=== PATIENT | female | born 1990 | race American Indian/Alaskan Native ===

== ENCOUNTER 2019-02-15 08:44 | Emergency (ER) | payer MEDICAID ==
[2019-02-15 08:48] VITALS: BP 120/64
[2019-02-15 09:19] LABS: Hematocrit 37.6 % (30.3-42.9); Hemoglobin 12.2 gm/dl (10.1-14.3); Mean Corpuscular HGB Conc 33 % (30-34); Mean Corpuscular Volume 83 fl (79-97); Platelet Count 139 K/mm3 (140-440); Red Blood Count 4.54 M/mm3 (3.65-5.03); Red Cell Distribution Width 16.2 % (13.2-15.2)
[2019-02-15 10:37] LABS: Bilirubin,Urine NEG (Negative); Blood,Urine LG (Negative); Color,Urine Yellow (Yellow); Mucus,Urine 3+ /HPF; Protein,Urine <15 mg/dL mg/dL (Negative)
--- NOTE | 2019-02-15 10:44 | Emergency Department Report ---
ED HPI - General Chief complaint: Vaginal Bleeding Stated complaint: MISCARRIAGE Time Seen by Provider: 02/15/19 09:34 Source: patient Mode of arrival: Ambulatory Limitations: No Limitations - History of Present Illness Initial comments: This is a 28-year-old female nontoxic, well nourished in appearance, no acute signs of distress presents to the ED with c/o of vaginal bleeding and pelvic pain/cramping x x4 days. Patient stated seen some clump of blood yesterday. Patient denies any abdominal pain. Patient denies any vaginal discharge or foul odor. Patient denies any nausea, vomiting, chest pain, shortness of breathe, fever, chills, headache, stiff neck, numbness, tingling. Patient denies any urinary symptoms. Patient denies any allergies or PMH. LMP 12/29/18. MD Complaint: vaginal bleeding, other (pelvic cramping) -: days(s) (4) Location: pelvis Radiation: none Severity: mild Severity scale (0 -10): 3 Quality: cramping Consistency: intermittent Improves with: none Worsens with: none Associated symptoms: vaginal bleeding. denies: nausea/vomiting, vaginal discharge, abdominal pain, dysuria, headache, vision changes, malaise, dysparuenia, rash, seizure, shortness of breath, syncope, weakness Vaginal bleeding: light :: Yes Pre-radha care: none - Related Data Previous Rx's Medication Instructions Recorded Last Taken Type Nitrofurantoin Monohyd/M-Cryst 100 mg PO Q12H #14 capsule 02/15/19 Unknown Rx [Macrobid 100 mg Capsule] 21/Iron Fu/Folic Acid 1 each PO DAILY #30 tablet 02/15/19 Unknown Rx [ Complete Caplet] Allergies Allergy/AdvReac Type Severity Reaction Status Date / Time No Known Allergies Allergy Unverified 02/15/19 08:45 ED Review of Systems ROS: Stated complaint: MISCARRIAGE Other details as noted in HPI Constitutional: denies: chills, fever Eyes: denies: eye pain, eye discharge, vision change ENT: denies: ear pain, throat pain Respiratory: denies: cough, shortness of breath, wheezing Cardiovascular: denies: chest pain, palpitations Endocrine: no symptoms reported Gastrointestinal: denies: abdominal pain, nausea, diarrhea Genitourinary: abnormal menses. denies: urgency, dysuria, discharge Musculoskeletal: denies: back pain, joint swelling, arthralgia Skin: denies: rash, lesions Neurological: denies: headache, weakness, paresthesias Psychiatric: denies: anxiety, depression Hematological/Lymphatic: denies: easy bleeding, easy bruising ED Past Medical Hx - Past Medical History Previous Medical History?: No - Surgical History Past Surgical History?: No - Social History Smoking Status: Never Smoker Substance Use Type: None - Medications Home Medications: Home Medications Medication Instructions Recorded Confirmed Last Taken Type Nitrofurantoin Monohyd/M-Cryst 100 mg PO Q12H #14 capsule 02/15/19 Unknown Rx [Macrobid 100 mg Capsule] 21/Iron Fu/Folic Acid 1 each PO DAILY #30 tablet 02/15/19 Unknown Rx [ Complete Caplet] ED Physical Exam - General Limitations: No Limitations General appearance: alert, in no apparent distress - Head Head exam: Present: atraumatic, normocephalic - Eye Eye exam: Present: normal appearance - ENT ENT exam: Present: mucous membranes moist - Neck Neck exam: Present: normal inspection, full ROM. Absent: tenderness, meningismus, lymphadenopathy - Respiratory Respiratory exam: Present: normal lung sounds bilaterally. Absent: respiratory distress, wheezes, rales, rhonchi, stridor, chest wall tenderness, accessory muscle use, decreased breath sounds, prolonged expiratory - Cardiovascular Cardiovascular Exam: Present: regular rate, normal rhythm, normal heart sounds. Absent: bradycardia, tachycardia, irregular rhythm, systolic murmur, diastolic murmur, rubs, gallop - GI/Abdominal GI/Abdominal exam: Present: soft, normal bowel sounds. Absent: distended, tenderness, guarding, rebound, rigid, diminished bowel sounds - Extremities Exam Extremities exam: Present: normal inspection, full ROM - Back Exam Back exam: Present: normal inspection, full ROM. Absent: tenderness, CVA tenderness (R), CVA tenderness (L), muscle spasm, paraspinal tenderness, vertebral tenderness, rash noted - Neurological Exam Neurological exam: Present: alert, oriented X3 - Psychiatric Psychiatric exam: Present: normal affect, normal mood - Skin Skin exam: Present: warm, dry, intact, normal color. Absent: rash ED Course Vital Signs 02/15/19 08:45 Temperature 98.2 F Pulse Rate 89 Respiratory 18 Rate Blood Pressure 120/64 O2 Sat by Pulse 96 Oximetry - Reevaluation(s) Reevaluation #1: 02/15/19 11:05 Patient is speaking in full sentences with no signs of distress noted. ED Medical Decision Making - Lab Data Result diagrams: 02/15/19 08:57 - Medical Decision Making This is a 28-year-old female presents with threatened miscarriage and UTI. Patient is stable and was examined by me. Normal abdominal exam. US OB obtained and dictated by the radiologist Greg Soto from [facility] with normal single IUP with 92 heart beat and 6 weeks 3 days. Ua obtained. Quantative serum test obtained. Patient notified of the US report with no questions noted by the patient. Patient was instructed f/u with [facility] in 2 days to follow up with a [facility] or to emergency room for a reevaluation of serum quantative test with possible ultrasound. RH factor positive. Labs within normal limits. Patient was given strict precautions and education on ectopic . At time of discharge, the patient does not seem toxic or ill in appearance. No acute signs of distress noted. Patient agrees to discharge treatment plan of care. No further questions noted by the patient. Critical care attestation.: If time is entered above; I have spent that time in minutes in the direct care of this critically ill patient, excluding procedure time. ED Disposition Clinical Impression: Threatened miscarriage UTI (urinary tract infection) Qualifiers: Urinary tract infection type: acute cystitis Hematuria presence: with hematuria Qualified Code(s): N30.01 - Acute cystitis with hematuria Disposition: - TO HOME OR SELFCARE Is pt being admited?: No Does the pt Need Aspirin: No Condition: Stable Instructions: Threatened Miscarriage (ED), Urinary Tract Infection in Women (ED) Additional Instructions: Follow-up with a OBGYN doctor in 2 days for a repeat HCG testing or if symptoms worsen and continue return to emergency room as soon as possible. Prescriptions: Nitrofurantoin Monohyd/M-Cryst [Macrobid 100 mg Capsule] 100 mg PO Q12H #14 capsule 21/Iron Fu/Folic Acid [ Complete Caplet] 1 each PO DAILY #30 tablet Referrals: CIRA SCHAEFFER MD [Primary Care Provider] - 3-5 Days [facility] [Outside] - 3-5 Days TAHIR BARRAZA MD [Staff Physician] - 02/17/19 [facility] [Provider Group] - 02/17/19
[2019-02-15 10:51] LABS: Basophils % (Manual) 0 % (0.0-1.8); Eosinophils % (Manual) 0 % (0.0-4.3); Total Cells Counted 100
[2019-02-15 10:52] LABS: Platelet Estimate Consistent w Auto; Target Cells Few
--- NOTE | 2019-02-15 11:05 | Ultrasound Report ---
PROCEDURE: US OB <= 14 WEEKS FETUS, US OB TRANSVAGINAL TECHNIQUE: Real-time transabdominal sonography of the uterus, placenta, amniotic fluid, adnexa, and fetus was performed with image documentation. Measurements were obtained to determine age/size. M-mode Doppler was used to document heartbeat. HISTORY: vaginal bleeding COMPARISONS: None . FINDINGS: Uterus : 9.1 x 3.4 x 4.7 cm and is anteverted. Normal appearance of the uterine myometrium. Endometrium: 3.6 mm in thickness. No intrauterine is visualized. Cervix: Normal. Right Ovary: 2.9 x 1.4 x 2.2 cm. Normal morphology. . Left Ovary: 3.2 x 1.7 x 2 cm. 1.1 cm thick-walled cyst in the left ovary, that may represent a corpu s luteum cyst versus hemorrhagic cyst . IMPRESSION: No intrauterine is visualized. Findings may represent very early intrauterine teresa bernabe failed first trimester . Recommend serial beta hCG measurements and consider follow-up u ltrasound if clinically indicated. 1.1 cm thick-walled cyst in the left ovary, that may represent a corpus luteum cyst versus hemorrhagi c cyst. This document is electronically signed by Monique Yancey MD., February 15 2019 11:02:46 AM ET
== END 2019-02-15 11:15 | disposition home or self-care (01) ==
LOC: ED 08:44
DX: O20.0 Threatened abortion (principal); O23.41 Unspecified infection of urinary tract in pregnancy, first trimester; Z3A.01 Less than 8 weeks gestation of pregnancy
CPT/HCPCS: 36415; 76801; 76817; 81001; 84702; 85007; 85025; 86850; 86900; 86901; 99284

== ENCOUNTER 2019-02-26 10:18 | Emergency (ER) | payer MEDICAID ==
[2019-02-26 10:33] VITALS: BP 110/58
--- NOTE | 2019-02-26 11:41 | Emergency Department Report ---
ED Female HPI - General Chief complaint: Recheck/Abnormal Lab/Rx Stated complaint: DISCHARGE/ITCHY Time Seen by Provider: 02/26/19 11:29 Source: patient Mode of arrival: Ambulatory Limitations: No Limitations - History of Present Illness Initial comments: Yolanda is a 28 yo who experienced a threatened or complete miscarriage one half weeks ago. She was seen in the emergency department 14th of this month. She was advised to return today's after that encounter for ACG set. She remembers having a large amount of vaginal bleeding. She has been in good health since that time. That encounter occurred 11 days ago. She has been in good health since. She is returning just for a checkup. Currently symptom- free. Complaint: vaginal bleeding, other (resolved) Improves with: none Worsens with: none Associated Symptoms: denies other symptoms - Related Data Previous Rx's Medication Instructions Recorded Last Taken Type Nitrofurantoin Monohyd/M-Cryst 100 mg PO Q12H #14 capsule 02/15/19 Unknown Rx [Macrobid 100 mg Capsule] 21/Iron Fu/Folic Acid 1 each PO DAILY #30 tablet 02/15/19 Unknown Rx [ Complete Caplet] Allergies Allergy/AdvReac Type Severity Reaction Status Date / Time No Known Allergies Allergy Unverified 02/15/19 08:45 ED Review of Systems ROS: Stated complaint: DISCHARGE/ITCHY Other details as noted in HPI Comment: All other systems reviewed and negative Constitutional: denies: fever, malaise Respiratory: denies: cough Cardiovascular: denies: chest pain ED Past Medical Hx - Past Medical History Previous Medical History?: No - Surgical History Past Surgical History?: No - Social History Smoking Status: Current Every Day Smoker Substance Use Type: None - Medications Home Medications: Home Medications Medication Instructions Recorded Confirmed Last Taken Type Nitrofurantoin Monohyd/M-Cryst 100 mg PO Q12H #14 capsule 02/15/19 Unknown Rx [Macrobid 100 mg Capsule] 21/Iron Fu/Folic Acid 1 each PO DAILY #30 tablet 02/15/19 Unknown Rx [ Complete Caplet] ED Physical Exam - General Limitations: No Limitations General appearance: alert, in no apparent distress - Head Head exam: Present: atraumatic, normocephalic - Eye Eye exam: Present: normal appearance - ENT ENT exam: Present: mucous membranes moist - Neck Neck exam: Present: normal inspection, full ROM - Respiratory Respiratory exam: Present: wheezes. Absent: respiratory distress - Neurological Exam Neurological exam: Present: alert, oriented X3 - Psychiatric Psychiatric exam: Present: normal affect, normal mood - Skin Skin exam: Present: warm, dry, intact, normal color. Absent: rash ED Course Vital Signs 02/26/19 10:31 Temperature 98.0 F Pulse Rate 75 Respiratory 16 Rate Blood Pressure 110/58 O2 Sat by Pulse 100 Oximetry ED Medical Decision Making - Lab Data Laboratory Results - last 24 hr 02/26/19 11:45 HCG, Quant 5.08 H - Medical Decision Making ms. Rodriguez returns to ED for follow up of threatened miscarriage. Evaluated 11 days ago. I reviewed electronic medical record. An ultrasound, no IUP identified. HCG level remarkably low 200. Repeat ECG 5 confirming missed complete miscarriage. Critical care attestation.: If time is entered above; I have spent that time in minutes in the direct care of this critically ill patient, excluding procedure time. ED Disposition Clinical Impression: Missed , Complete Disposition: DC-01 TO HOME OR SELFCARE Is pt being admited?: No Does the pt Need Aspirin: No Condition: Stable Instructions: Spontaneous Miscarriage (ED) Referrals: CIRA SCHAEFFER MD [Primary Care Provider] - 3-5 Days
== END 2019-02-26 12:39 | disposition home or self-care (01) ==
LOC: ED 10:18
DX: O03.9 Complete or unspecified spontaneous abortion without complication (principal); F17.200 Nicotine dependence, unspecified, uncomplicated; Z3A.00 Weeks of gestation of pregnancy not specified
CPT/HCPCS: 36415; 84702; 99283

== ENCOUNTER 2019-08-02 18:52 | Emergency (ER) | payer MEDICAID ==
[2019-08-02 19:00] VITALS: BP 105/61
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
[2019-08-02] MEDS ORDERED: IBUPROFEN 600 MG TAB PO ONE ×2 (19:38→19:41)
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
== END 2019-08-02 19:45 | disposition home or self-care (01) ==
LOC: ED 18:52
DX: M62.830 Muscle spasm of back (principal); R51 Headache; F17.200 Nicotine dependence, unspecified, uncomplicated; F12.10 Cannabis abuse, uncomplicated; Z79.899 Other long term (current) drug therapy; V49.59XA Passenger injured in collision with other motor vehicles in traffic accident, initial encounter; Y93.89 Activity, other specified; Y92.410 Unspecified street and highway as the place of occurrence of the external cause; Y99.8 Other external cause status
CPT/HCPCS: 72100

== ENCOUNTER 2020-02-22 04:50 | Emergency (ER) | payer MEDICAID ==
--- NOTE | 2020-02-22 05:55 | XRay Report ---
CHEST 1 VIEW INDICATION / CLINICAL INFORMATION: Chest Pain. COMPARISON: None available. FINDINGS: SUPPORT DEVICES: None. HEART / MEDIASTINUM: No significant abnormality. LUNGS / PLEURA: No significant pulmonary or pleural abnormality. No pneumothorax. ADDITIONAL FINDINGS: No significant additional findings. IMPRESSION: 1. No acute findings. Signer Name: Jyoti Blankenship MD Signed: 02/22/2020 5:50 AM Workstation Name: [id number]
--- NOTE | 2020-02-22 06:10 | Emergency Department Report ---
ED Chest Pain HPI - General Chief Complaint: Chest Pain Stated Complaint: CHEST PAIN,DIARRHEA Time Seen by Provider: 02/22/20 05:58 Source: patient Mode of arrival: Ambulatory Limitations: No Limitations - History of Present Illness Initial Comments: This is a 29-year-old female with history of UTI and trichomonas who presents with left-sided chest pain. She also wants refill of her medications for UTI and trichomonas infection. For several days she has had intermittent sharp fleeting mild chest pain. She felt faint. She does receive Depo-Provera injection. She is pain-free at this time. Pain pain mostly occurs at rest. She denies leg pain, travel. No history of DVT or lung clots. She is currently symptom-free now. Several months ago she was prescribed antibiotics for trichomonas and UTI. She did not feel this prescription. She does not have any dysuria or vaginal discharge. However she does desire antibiotics for complete treatment. MD Complaint: chest pain -: Gradual, days(s) (3 days) Onset: during rest Pain Radiation: LUE Severity: mild Severity scale (0 -10): 5 Quality: sharp Consistency: now resolved Improves With: nothing Worsens With: nothing - Related Data Previous Rx's Medication Instructions Recorded Last Taken Type Nitrofurantoin Monohyd/M-Cryst 100 mg PO Q12H #14 capsule 02/15/19 Unknown Rx [Macrobid 100 mg Capsule] 21/Iron Fu/Folic Acid 1 each PO DAILY #30 tablet 02/15/19 Unknown Rx [ Complete Caplet] Ibuprofen [Motrin 600 MG tab] 600 mg PO Q8H PRN #15 tablet 08/02/19 Unknown Rx Tizanidine HCl [Zanaflex 2mg CAP] 2 mg PO TID PRN #15 capsule 08/02/19 Unknown Rx cephALEXin [Keflex] 500 mg PO Q6HR 5 Days #20 capsule 02/22/20 Unknown Rx metroNIDAZOLE [Flagyl TAB] 500 mg PO Q12HR 7 Days #14 tab 02/22/20 Unknown Rx Allergies Allergy/AdvReac Type Severity Reaction Status Date / Time No Known Allergies Allergy Unverified 02/15/19 08:45 Heart Score - HEART Score History: Slightly suspicious EKG: Normal Age: < 45 Risk factors: 1-2 risk factors Troponin: < normal limit HEART Score: 1 ED Review of Systems ROS: Stated complaint: CHEST PAIN,DIARRHEA Other details as noted in HPI Comment: All other systems reviewed and negative Constitutional: denies: fever, malaise Respiratory: denies: cough, shortness of breath Cardiovascular: chest pain Gastrointestinal: denies: abdominal pain, nausea, vomiting ED Past Medical Hx - Past Medical History Previous Medical History?: No Additional medical history: Back pain, Headache - Surgical History Past Surgical History?: Yes Additional Surgical History: - Social History Smoking Status: Current Every Day Smoker Substance Use Type: None - Medications Home Medications: Home Medications Medication Instructions Recorded Confirmed Last Taken Type Nitrofurantoin Monohyd/M-Cryst 100 mg PO Q12H #14 capsule 02/15/19 Unknown Rx [Macrobid 100 mg Capsule] 21/Iron Fu/Folic Acid 1 each PO DAILY #30 tablet 02/15/19 Unknown Rx [ Complete Caplet] Ibuprofen [Motrin 600 MG tab] 600 mg PO Q8H PRN #15 tablet 08/02/19 Unknown Rx Tizanidine HCl [Zanaflex 2mg CAP] 2 mg PO TID PRN #15 capsule 08/02/19 Unknown Rx cephALEXin [Keflex] 500 mg PO Q6HR 5 Days #20 capsule 02/22/20 Unknown Rx metroNIDAZOLE [Flagyl TAB] 500 mg PO Q12HR 7 Days #14 tab 02/22/20 Unknown Rx ED Physical Exam - General Limitations: No Limitations General appearance: alert, in no apparent distress, other (Well-appearing smiling articulate appears comfortable) - Head Head exam: Present: atraumatic, normocephalic - Eye Eye exam: Present: normal appearance - ENT ENT exam: Present: mucous membranes moist - Neck Neck exam: Present: normal inspection - Respiratory Respiratory exam: Present: normal lung sounds bilaterally. Absent: respiratory distress, wheezes, rales, rhonchi - Cardiovascular Cardiovascular Exam: Present: regular rate, normal rhythm, normal heart sounds. Absent: systolic murmur, diastolic murmur, rubs, gallop - GI/Abdominal GI/Abdominal exam: Present: soft, normal bowel sounds. Absent: distended, tenderness, guarding, rebound - Extremities Exam Extremities exam: Present: normal inspection - Back Exam Back exam: Present: normal inspection - Neurological Exam Neurological exam: Present: alert, oriented X3 - Psychiatric Psychiatric exam: Present: normal affect, normal mood - Skin Skin exam: Present: warm, dry, intact, normal color. Absent: rash ED Course Vital Signs 02/22/20 02/22/20 05:00 05:34 Temperature 99.2 F Pulse Rate 79 65 Respiratory 18 15 Rate Blood Pressure 113/65 O2 Sat by Pulse 100 100 Oximetry ED Medical Decision Making - Radiology Data Radiology results: report reviewed Chest radiograph: No acute findings according radiology report - Medical Decision Making 1. Chest pain suspicious for chest wall pain versus PVCs: No persistent symptoms to indicate pericarditis or pulmonary embolism. Patient very low risk for arrhythmia. Recommended ibuprofen for chest wall pain. 2. History of trichomonas and UTI: Patient is currently asymptomatic prescribed cephalexin and metronidazole Critical care attestation.: If time is entered above; I have spent that time in minutes in the direct care of this critically ill patient, excluding procedure time. ED Disposition Clinical Impression: Chest pain Disposition: DC-01 TO HOME OR SELFCARE Is pt being admited?: No Does the pt Need Aspirin: No Condition: Stable Instructions: Chest Pain (ED) Prescriptions: metroNIDAZOLE [Flagyl TAB] 500 mg PO Q12HR 7 Days #14 tab cephALEXin [Keflex] 500 mg PO Q6HR 5 Days #20 capsule Referrals: MAN MOROCHO MD [Staff Physician] - as needed
[2020-02-22 07:03] VITALS: BP 108/57
== END 2020-02-22 07:03 | disposition home or self-care (01) ==
LOC: ED 04:50
DX: R07.9 Chest pain, unspecified (principal); F17.200 Nicotine dependence, unspecified, uncomplicated; Z98.890 Other specified postprocedural states; Z79.899 Other long term (current) drug therapy; Z76.0 Encounter for issue of repeat prescription
CPT/HCPCS: 71045; 93005

== ENCOUNTER 2021-07-06 18:38 | Emergency (ER) | payer MEDICAID ==
[2021-07-06 19:18] VITALS: BP 118/73
[2021-07-06 19:42] LABS: Bilirubin,Urine NEG (Negative); Blood,Urine NEG (Negative); Color,Urine Yellow (Yellow); Mucus,Urine 1+ /HPF; Protein,Urine <15 mg/dL mg/dL (Negative)
[2021-07-06 19:45] LABS: HCG Qualitative,Urine Negative (Negative)
== END 2021-07-07 01:50 | disposition left against medical advice (07) ==
LOC: ED 18:38
DX: N89.8 Other specified noninflammatory disorders of vagina (principal); Z53.21 Procedure and treatment not carried out due to patient leaving prior to being seen by health care provider
CPT/HCPCS: 81001; 81025

== ENCOUNTER 2022-05-07 11:06 | Emergency (ER) | payer MEDICAID ==
[2022-05-07] MEDS ORDERED: SODIUM CHLORIDE 0.9% 1000 ML 1,000 ML IV ONE (11:34)
[2022-05-07] MEDS ORDERED: BUTALB/ACETAMINOPHEN/CAFFEINE TAB PO ONE (11:34)
[2022-05-07] MEDS ORDERED: ONDANSETRON 4 MG/2 ML INJ IV ONE (11:35)
--- NOTE | 2022-05-07 11:45 | Emergency Department Report ---
ED Headache HPI - General Chief Complaint: Headache Stated Complaint: 10 WEEKS CANT KEEP ANYTHING DOWN Time Seen by Provider: 05/07/22 11:17 - History of Present Illness Initial Comments: 31-year-old black female who is G4, P2 at 10 weeks gestation presents to the emergency department for evaluation of few day history of persistent headache. She states that she was taking medication at home for headaches that was pre viously prescribed by her PCP that she has since lost. She states that today she has had persistent nausea vomiting along with headache. She denies vision changes, dizziness, photophobia. She states that she was having intermittent abdominal pain for several weeks during this for which she was seen at one of the [facility] and had a ultrasound that showed she had a IUP 5 to 6 weeks gestational but she states that she still has intermittent abdominal pain since then. She denies dysuria, fever, vaginal discharge, diarrhea. Timing/Duration: other Quality: moderate (3 to 4 days) Head Injury Location: frontal Recent Head Trauma: chronic headaches Associated Symptoms: facial pain, nausea/vomiting. denies: fatigue, fever/chills, flushing, loss of consciousness, nasal congestion, nasal drainage, numbness in legs/feet, rash, seizures, sinus infection, stiff neck, vision changes, weakness Allergies/Adverse Reactions: Allergies No Known Allergies Allergy (Unverified 02/15/19 08:45) Home Medications: Ambulatory Orders Nitrofurantoin Monohyd/M-Cryst [Macrobid 100 mg Capsule] 100 mg PO Q12H #14 capsule 02/15/19 21/Iron Fu/Folic Acid [ Complete Caplet] 1 each PO DAILY #30 tablet 02/15/19 Ibuprofen [Motrin 600 MG tab] 600 mg PO Q8H PRN #15 tablet 08/02/19 Tizanidine HCl [Zanaflex 2mg CAP] 2 mg PO TID PRN #15 capsule 08/02/19 cephALEXin [Keflex] 500 mg PO Q6HR 5 Days #20 capsule 02/22/20 metroNIDAZOLE [Flagyl TAB] 500 mg PO Q12HR 7 Days #14 tab 02/22/20 Butalb/Acetaminophen/Caffeine [Fioricet 50-300-40 mg CAP] 1 cap PO Q6HR PRN #12 cap 05/07/22 Ondansetron [Zofran Odt] 4 mg PO Q8HR PRN #12 tab.rapdis 05/07/22 ED Review of Systems ROS: Stated complaint: 10 WEEKS CANT KEEP ANYTHING DOWN Other details as noted in HPI Comment: All other systems reviewed and negative Constitutional: denies: chills, fever Eyes: eye pain. denies: eye discharge, vision change ENT: denies: ear pain, throat pain, congestion Respiratory: denies: cough, shortness of breath Cardiovascular: denies: chest pain, palpitations Gastrointestinal: abdominal pain, nausea, vomiting. denies: diarrhea, hematemesis, melena, hematochezia Genitourinary: denies: urgency, dysuria Musculoskeletal: denies: back pain Skin: denies: rash, lesions Neurological: headache. denies: weakness, numbness, paresthesias, confusion, abnormal gait ED Past Medical Hx - Past Medical History Additional medical history: Back pain, Headache - Surgical History Additional Surgical History: - Social History Smoking Status: Current Every Day Smoker Substance Use Type: None - Medications Home Medications: Home Medications Medication Instructions Recorded Confirmed Last Taken Type Nitrofurantoin Monohyd/M-Cryst 100 mg PO Q12H #14 capsule 02/15/19 Unknown Rx [Macrobid 100 mg Capsule] 21/Iron Fu/Folic Acid 1 each PO DAILY #30 tablet 02/15/19 Unknown Rx [ Complete Caplet] Ibuprofen [Motrin 600 MG tab] 600 mg PO Q8H PRN #15 tablet 08/02/19 Unknown Rx Tizanidine HCl [Zanaflex 2mg CAP] 2 mg PO TID PRN #15 capsule 08/02/19 Unknown Rx cephALEXin [Keflex] 500 mg PO Q6HR 5 Days #20 capsule 02/22/20 Unknown Rx metroNIDAZOLE [Flagyl TAB] 500 mg PO Q12HR 7 Days #14 tab 02/22/20 Unknown Rx Butalb/Acetaminophen/Caffeine 1 cap PO Q6HR PRN #12 cap 05/07/22 Unknown Rx [Fioricet 50-300-40 mg CAP] Ondansetron [Zofran Odt] 4 mg PO Q8HR PRN #12 tab.rapdis 05/07/22 Unknown Rx ED Physical Exam - General Limitations: No Limitations General appearance: alert, in no apparent distress - Head Head exam: Present: atraumatic, normocephalic - Eye Eye exam: Present: normal appearance. Absent: conjunctival injection, periorbital swelling, periorbital tenderness - ENT ENT exam: Absent: normal exam, normal orophraynx - Neck Neck exam: Present: normal inspection, full ROM. Absent: tenderness, lymphadenopathy - Respiratory Respiratory exam: Present: normal lung sounds bilaterally, chest wall tenderness. Absent: respiratory distress, wheezes, rales, rhonchi, stridor - Cardiovascular Cardiovascular Exam: Present: regular rate, normal heart sounds - GI/Abdominal GI/Abdominal exam: Present: soft, normal bowel sounds. Absent: distended, tenderness, guarding, rebound, rigid - Extremities Exam Extremities exam: Present: normal inspection, normal capillary refill. Absent: pedal edema, joint swelling, calf tenderness - Back Exam Back exam: Present: normal inspection. Absent: CVA tenderness (R), CVA tenderness (L), vertebral tenderness - Neurological Exam Neurological exam: Present: alert, oriented X3, CN II-XII intact, normal gait - Psychiatric Psychiatric exam: Present: normal affect, normal mood - Skin Skin exam: Present: warm, dry, intact, normal color ED Course Vital Signs 05/07/22 05/07/22 11:10 13:57 Temperature 98.2 F 98.2 F Pulse Rate 72 67 Respiratory 20 16 Rate Blood Pressure 106/63 114/66 [Right] O2 Sat by Pulse 100 100 Oximetry - Reevaluation(s) Reevaluation #1: 05/07/22 13:55 Headache nausea and vomiting resolved. Awaiting results of UA. ED Medical Decision Making - Medical Decision Making 31-year-old black female who is G4, P2 at 10 weeks gestation presents to the emergency department for evaluation of few day history of persistent headache. She states that she was taking medication at home for headaches that was previously prescribed by her PCP that she has since lost. She states that today she has had persistent nausea vomiting along with headache. She denies vision changes, dizziness, photophobia. She states that she was having intermittent abdominal pain for several weeks during this for which she was seen at one of the [facility] and had a ultrasound that showed she had a IUP 5 to 6 weeks gestational but she states that she still has intermittent abdominal pain since then. She denies dysuria, fever, vaginal discharge, diarrhea Physical exam unremarkable. UA negative for urinary tract infection. Patient denies abdominal pain at this time. Nausea vomiting headache resolved after medications and IV fluids. Patient be discharged home with prescription for Fioricet and Zofran to use as directed. She is advised to increase her intake of noncaffeinated fluids, take medications as prescribed, and follow-up with [facility] as planned. She is advised to return to the emergency department for any concerning symptoms. She verbalizes understanding of and agreement with plan of care. Laboratory Results - last 24 hr 05/07/22 Unknown Urine Color Yellow Urine Turbidity Clear Urine pH 7.5 H Ur Specific [place] 1.010 Urine Protein <15 mg/dl Urine Glucose (UA) Negative Urine Ketones Negative Urine Blood Negative Urine Nitrite Negative Ur Reducing Substances Not Reportable Urine Bilirubin Negative Urine Ictotest Not Reportable Urine Urobilinogen < 2.0 Ur Leukocyte Esterase Negative Urine WBC (Auto) 1.0 Urine RBC (Auto) 1.0 U Epithel Cells (Auto) 15.0 H Urine Mucus Few Critical care attestation.: If time is entered above; I have spent that time in minutes in the direct care of this critically ill patient, excluding procedure time. ED Disposition Clinical Impression: Nausea and vomiting during Headache Qualifiers: Headache type: unspecified Headache chronicity pattern: acute headache Intractability: not intractable Qualified Code(s): R51.9 - Headache, unspecified Disposition: 01 HOME / SELF CARE / HOMELESS Is pt being admited?: No Does the pt Need Aspirin: No Condition: Stable Instructions: Morning Sickness, [id number], General Headache Without Cause, [id number] Additional Instructions: Take medications as prescribed. Drink plenty of noncaffeinated fluids. Follow- up with [facility] as planned. Return to the emergency department as needed. Prescriptions: Butalb/Acetaminophen/Caffeine [Fioricet 50-300-40 mg CAP] 1 cap PO Q6HR PRN #12 cap PRN Reason: Headache Ondansetron [Zofran Odt] 4 mg PO Q8HR PRN #12 tab.rapdis PRN Reason: Nausea And Vomiting Referrals: NEETA ROSS MD [Staff Physician] - 3-5 Days [facility] [Provider Group] - 3-5 Days [facility] [Provider Group] - 3-5 Days Time of Disposition: 14:08
[2022-05-07 13:48] LABS: Mucus,Urine FEW /HPF
[2022-05-07 13:56] LABS: Color,Urine Yellow (Yellow)
[2022-05-07 13:57] LABS: Bilirubin,Urine Negative (Negative)
[2022-05-07 13:58] VITALS: BP 114/66
[2022-05-07 13:58] LABS: Blood,Urine Negative (Negative); PH,Urine 7.5 (5.0-7.0); Protein,Urine <15 mg/dL mg/dL (Negative); Urobilinogen,Urine < 2.0 mg/dL (<2.0)
== END 2022-05-07 14:24 | disposition home or self-care (01) ==
LOC: ED 11:06
DX: O21.8 Other vomiting complicating pregnancy (principal); Z3A.10 10 weeks gestation of pregnancy; R51.9 Headache, unspecified; Z98.890 Other specified postprocedural states; F17.290 Nicotine dependence, other tobacco product, uncomplicated
CPT/HCPCS: 81001; 96361; 96374; 99283; J2405; J7030

== ENCOUNTER 2022-06-19 11:02 | Emergency (ER) | payer MEDICAID ==
[2022-06-19 11:57] VITALS: BP 112/61
[2022-06-19] MEDS ORDERED: fentaNYL 100 MCG/2 ML INJ IV ONE (12:49)
[2022-06-19] MEDS ORDERED: ONDANSETRON 4 MG/2 ML INJ IV ONE (12:49)
[2022-06-19] MEDS ORDERED: KETOROLAC 30 MG/1 ML INJ IV ONE (12:50)
--- NOTE | 2022-06-19 12:52 | Emergency Department Report ---
ED Female HPI - General Chief complaint: Urogenital-Female Stated complaint: 16 WKS /DISCHARGE/BLEEDING Time Seen by Provider: 06/19/22 12:49 Source: patient Mode of arrival: Ambulatory Limitations: No Limitations - History of Present Illness Initial comments: Pt reports green vaginal discharge x3 days and vaginal bleeding that started yesterday with pelvic and lower back pain. Denies dysuria. pt reports she is 16 wks MD Complaint: vaginal discharge, dysuria -: Gradual, days(s) Severity scale (0 -10): 2 Quality: cramping Consistency: constant Improves with: none Worsens with: none Are you Now?: Yes - Related Data Sexually active: Yes Previous Rx's Medication Instructions Recorded Last Taken Type Nitrofurantoin Monohyd/M-Cryst 100 mg PO Q12H #14 capsule 02/15/19 Unknown Rx [Macrobid 100 mg Capsule] 21/Iron Fu/Folic Acid 1 each PO DAILY #30 tablet 02/15/19 Unknown Rx [ Complete Caplet] Ibuprofen [Motrin 600 MG tab] 600 mg PO Q8H PRN #15 tablet 08/02/19 Unknown Rx Tizanidine HCl [Zanaflex 2mg CAP] 2 mg PO TID PRN #15 capsule 08/02/19 Unknown Rx cephALEXin [Keflex] 500 mg PO Q6HR 5 Days #20 capsule 02/22/20 Unknown Rx metroNIDAZOLE [Flagyl TAB] 500 mg PO Q12HR 7 Days #14 tab 02/22/20 Unknown Rx Butalb/Acetaminophen/Caffeine 1 cap PO Q6HR PRN #12 cap 05/07/22 Unknown Rx [Fioricet 50-300-40 mg CAP] Ondansetron [Zofran Odt] 4 mg PO Q8HR PRN #12 tab.rapdis 05/07/22 Unknown Rx Allergies Allergy/AdvReac Type Severity Reaction Status Date / Time No Known Allergies Allergy Unverified 02/15/19 08:45 ED Review of Systems ROS: Stated complaint: 16 WKS /DISCHARGE/BLEEDING Other details as noted in HPI Comment: All other systems reviewed and negative ED Past Medical Hx - Past Medical History Previous Medical History?: Yes Additional medical history: Back pain, Headache - Surgical History Past Surgical History?: Yes Additional Surgical History: - Family History Family history: no significant - Social History Smoking Status: Never Smoker Substance Use Type: None - Medications Home Medications: Home Medications Medication Instructions Recorded Confirmed Last Taken Type Nitrofurantoin Monohyd/M-Cryst 100 mg PO Q12H #14 capsule 02/15/19 Unknown Rx [Macrobid 100 mg Capsule] 21/Iron Fu/Folic Acid 1 each PO DAILY #30 tablet 02/15/19 Unknown Rx [ Complete Caplet] Ibuprofen [Motrin 600 MG tab] 600 mg PO Q8H PRN #15 tablet 08/02/19 Unknown Rx Tizanidine HCl [Zanaflex 2mg CAP] 2 mg PO TID PRN #15 capsule 08/02/19 Unknown Rx cephALEXin [Keflex] 500 mg PO Q6HR 5 Days #20 capsule 02/22/20 Unknown Rx metroNIDAZOLE [Flagyl TAB] 500 mg PO Q12HR 7 Days #14 tab 02/22/20 Unknown Rx Butalb/Acetaminophen/Caffeine 1 cap PO Q6HR PRN #12 cap 05/07/22 Unknown Rx [Fioricet 50-300-40 mg CAP] Ondansetron [Zofran Odt] 4 mg PO Q8HR PRN #12 tab.rapdis 05/07/22 Unknown Rx ED Physical Exam - General Limitations: No Limitations General appearance: alert, in no apparent distress - Head Head exam: Present: atraumatic, normocephalic - Eye Eye exam: Present: normal appearance - ENT ENT exam: Present: mucous membranes moist - Neck Neck exam: Present: normal inspection - Respiratory Respiratory exam: Present: normal lung sounds bilaterally. Absent: respiratory distress - Cardiovascular Cardiovascular Exam: Present: regular rate, normal rhythm. Absent: systolic murmur, diastolic murmur, rubs, gallop - GI/Abdominal GI/Abdominal exam: Present: soft, normal bowel sounds - Extremities Exam Extremities exam: Present: normal inspection - Back Exam Back exam: Present: normal inspection - Neurological Exam Neurological exam: Present: alert, oriented X3 - Psychiatric Psychiatric exam: Present: normal affect, normal mood - Skin Skin exam: Present: warm, dry, intact, normal color. Absent: rash ED Course Vital Signs 06/19/22 11:53 Temperature 98.3 F Pulse Rate 97 H Respiratory 14 Rate Blood Pressure 112/61 O2 Sat by Pulse 98 Oximetry ED Medical Decision Making - Medical Decision Making LEFT ER BEFORE WORK UP Vital Signs 06/19/22 11:53 Temperature 98.3 F Pulse Rate 97 H Respiratory 14 Rate Blood Pressure 112/61 O2 Sat by Pulse 98 Oximetry Critical care attestation.: If time is entered above; I have spent that time in minutes in the direct care of this critically ill patient, excluding procedure time. ED Disposition Clinical Impression: Vaginal discharge during Disposition: 07 LEFT AWOL/ELOPED Is pt being admited?: No Condition: Stable Time of Disposition: 12:56
== END 2022-06-19 17:08 | disposition left against medical advice (07) ==
LOC: ED 11:02
DX: O46.92 Antepartum hemorrhage, unspecified, second trimester (principal); Z3A.16 16 weeks gestation of pregnancy
CPT/HCPCS: 99281